=== PATIENT | female | born 1975 | race Caucasian/White ===

== ENCOUNTER 2024-07-08 14:15 | Outpatient (CLI) | payer OTHER ==
[~2024-07-08 14:15] MED LIST: Iopamidol 370 76% 100 ML VIAL ONE
== END 2024-07-08 14:16 | disposition home or self-care (01) ==
LOC: BICCT 14:15
PROVIDERS: ATTEND Surgery
DX: K44.9 Diaphragmatic hernia without obstruction or gangrene (principal); R10.33 Periumbilical pain
CPT/HCPCS: 74160